=== PATIENT | male | born 1975 | race Caucasian/White ===

== ENCOUNTER 2018-09-19 16:55 | Emergency (ER) | payer MEDICAID ==
[~2018-09-19] VITALS: Ht 203.2 cm; Wt 145.5 kg
[~2018-09-19 16:55] MED LIST: BAYER CHEWABLE81 MG PO; CLARITIN 10 MG10 MG PO; FISH OIL 1,0001 CA1 PO; IBUPROFEN200 MG PO; LAMISIL250 MG PO; PERCOCET 10/3251 TA1 PO
[2018-09-19 17:07] VITALS: Ht 203.2 cm; Wt 145.5 kg
[2018-09-19] MEDS ORDERED: NEURONTIN 300300 MG PO (17:09)
[2018-09-19] MEDS ORDERED: PAXIL30 MG PO (17:09)
[2018-09-19 18:12] LABS: APPEARANCE CLEAR (CLEAR); BILIRUBIN NEGATIVE (NEGATIVE); COLOR DK YELLOW (YELLOW); GLUCOSE NEGATIVE (NEGATIVE); KETONE NEGATIVE (NEGATIVE); NITRITE NEGATIVE (NEGATIVE); PROTEIN NEGATIVE (NEGATIVE); UROBILINOGEN NORMAL (NORMAL)
[2018-09-19 18:14] LABS: BACTERIA FEW /hpf (NONE SEEN); MUCUS <1+ /lpf (NONE SEEN); WHITE CELLS - URINE 0-5 /hpf (0-5)
[2018-09-19 18:59] LABS: BASOPHILS 0.7 % (0-2); EOSINOPHILS 1.9 % (0-7); HEMATOCRIT 42.7 % (42.0-54.0); HEMOGLOBIN 14.6 g/dL (13.5-17.5); IMMATURE GRANULOCYTES 0.2 % (0-5); LYMPHOCYTES 25.8 % (15-50); MCH 31.7 pg (26.0-34.0); MCHC 34.2 g/dL (31.0-37.0); MCV 92.8 fL (80.0-100.0); MEAN PLATELET VOLUME 9.9 fL (7.4-10.4); MONOCYTES 6.2 % (2-11); NEUTROPHILS 65.2 % (40-80); WBC 8.6 10x3/uL (4.8-10.8)
[2018-09-19 19:00] LABS: PLATELET COUNT 219 10x3/uL (130-400)
[2018-09-19 19:21] LABS: ALBUMIN 3.4 g/dL (3.4-5.0); ALKALINE PHOSPHATASE 64 U/L (46-116); ALT (SGPT) 18 U/L (10-68); BILIRUBIN - TOTAL 0.32 mg/dL (0.2-1.3); CALC OSMOLALITY 273 mosm/kg (275-300); CALCIUM 8.6 mg/dL (8.5-10.1); CARBON DIOXIDE 27.2 mmol/L (21.0-32.0); CHLORIDE - SERUM 102 mmol/L (98-107); CREATININE - SERUM 1.1 mg/dL (0.6-1.3); GLUCOSE 93 mg/dL (74-106); POTASSIUM - SERUM 3.7 mmol/L (3.5-5.1); PROTEIN - SERUM 7.1 g/dL (6.4-8.2); SODIUM 137 mmol/L (136-145); UREA NITROGEN 13 mg/dL (7-18); eGFR NON AFRICAN AMERICAN 77 mL/min (90-120)
[2018-09-19] MEDS ORDERED: NORCO 10-325 TA1 TAB PO (20:17)
[2018-09-19] MEDS ORDERED: CYCLOBENZAPRINE10 MG PO (20:17)
[2018-09-19 20:27] VITALS: BP 118/76
== END 2018-09-19 20:28 | disposition home or self-care (01) ==
LOC: D.ER 16:55
PROVIDERS: Family Medicine
DX: M54.5 Low back pain (principal); Z86.73 Personal history of transient ischemic attack (TIA), and cerebral infarction without residual deficits; F17.200 Nicotine dependence, unspecified, uncomplicated